=== PATIENT | female | born 1950 | race Caucasian/White ===

== ENCOUNTER → 2018-10-17 | Outpatient (CLI) | payer MEDICARE, OTHER ==
--- NOTE | 2018-10-17 17:56 | Diagnostic Imaging Report ---
PROCEDURE: CT lumbar spine without contrast. TECHNIQUE: Multiple contiguous axial images were obtained through the lumbar spine without the use of intravenous contrast. Sagittal and coronal reformations were then performed. Auto Exposure Controls were utilized during the CT exam to meet ALARA standards for radiation dose reduction. INDICATION: Low back pain. COMPARISON: There are no prior studies available for comparison. FINDINGS: The reconstructed sagittal images show that there are postsurgical changes consistent with a fusion of L4, L5, and S1. There are also interbody devices in place at L4-5 and L5-S1. The orthopedic hardware seems to be in good position. The tip of the right pedicle screw at L5 does extend approximately 2.6 mm beyond the anterior margin of the vertebral body. The artifact related to the orthopedic hardware does limit the evaluation of the thecal sac at L4-5 and L5-S1. At the L3-4 level, there is narrowing of the disc space and vacuum disc formation. There does appear to be mild trefoil stenosis at this level with neural foraminal narrowing bilaterally, particularly on the left. At the L2-3 level, there is also narrowing of the disc space with vacuum disc formation. There is bony overgrowth on the left at this level resulting in narrowing of the neural foramen. There is also at least moderate trefoil stenosis. At the L1-2 level, there is fairly severe degenerative disc and bony disease as well. There is trefoil stenosis at this level and narrowing of the neural foramen bilaterally, particularly on the left. At the T12-L1 level, there is perhaps borderline central stenosis. There is neural foraminal narrowing on the left due to bony overgrowth. There is no acute bony abnormality identified. There is anterior wedging of T12. I suspect that this finding is long-standing in nature. There is no sign of a paraspinal mass. IMPRESSION: 1. There are postsurgical changes consistent with a fusion of L4, L5, and S1. The orthopedic hardware appears to be in good position. The thecal sac at the fused levels, however, is difficult to evaluate due to artifact related to the orthopedic hardware. If further study is desired, then MRI would be recommended. 2. There is fairly severe degenerative disc and bony disease at L1-2, L2-3, and L3-4. There is trefoil stenosis at each of these levels and narrowing of the neural foramina bilaterally, particularly on the left. 3. There is no acute bony abnormality noted. The anterior wedge compression deformity of T12 is most likely long-standing in nature. If previous studies are available, they would be helpful for comparison. Dictated by: Dictated on workstation # [id number]
== END ==
LOC: RAD 12:59
PROVIDERS: ATTEND Orthopaedic Surgery Orthopaedic Surgery of the Spine
DX: M51.16 Intervertebral disc disorders with radiculopathy, lumbar region (principal); M48.061 Spinal stenosis, lumbar region without neurogenic claudication; M89.9 Disorder of bone, unspecified; M43.8X4 Other specified deforming dorsopathies, thoracic region; Z98.1 Arthrodesis status
CPT/HCPCS: 72131